=== PATIENT | male | born 1980 | race Caucasian/White ===

== ENCOUNTER → 2018-07-18 11:33 | Outpatient (CLI) | payer MEDICARE, SELFPAY ==
[2018-07-18 14:17] LABS: Anion Gap 10 (5-15); BUN 7 mg/dL (7-18); BUN/Creat Ratio 6.7 RATIO (10-20); Calcium,Total 8.4 mg/dL (8.5-10.1); Chloride 109 mmol/L (98-107); Creatinine, Serum 1.04 mg/dL (0.70-1.30); EST Glomerular Filtration Rate 86 mL/min (>60); Est Glom Filt Rate - Afr Amer 104 mL/min (>60); Glucose 122 mg/dL (74-106); Potassium 3.7 mmol/L (3.5-5.1); Sodium Level 141 mmol/L (136-145)
== END ==
PROVIDERS: Family Provider Family Medicine; PCP Family Medicine; Visit Provider Family Medicine
DX: I10 Essential (primary) hypertension (principal)
CPT/HCPCS: 36415; 80048

== ENCOUNTER → 2019-08-01 14:04 | Outpatient (CLI) | payer MEDICARE, SELFPAY ==
--- NOTE | 2019-08-01 14:10 | RAD_ITS ---
STUDY: X-RAY - PELVIS AND RIGHT HIP REASON FOR EXAM: Male, 38 years old. TECHNIQUE: 3 views of the pelvis and hip. COMPARISON: None. FINDINGS: There is a non-specific bowel gas pattern. Normal visualized soft tissue structures. Normal bilateral iliac wings, sacroiliac joints and visualized sacrum. Normal bilateral superior and inferior pubic rami. Normal pubic symphysis. Normal bilateral ischial tuberosities. Normal visualized femoral head. Normal acetabulum. There is mild osteoarthritis involving both hip joints particularly of the medial aspect slightly more on the right side. RAD/HIP, UNI W/ Pelvis 2-3 Views IMPRESSION: Mild osteoarthritis medial aspect of the hip joints bilaterally more on the right Electronically Signed: Shwetha Sierra, at 16:28 EST Tel , Service support ,
== END ==
PROVIDERS: Family Provider Family Medicine; PCP Family Medicine; Referring Provider Family Medicine; Visit Provider Family Medicine
DX: M25.551 Pain in right hip (principal)
CPT/HCPCS: 73502

== ENCOUNTER 2019-09-07 10:00 | Outpatient (RCR) | payer MEDICARE, SELFPAY ==
--- NOTE | 2019-08-17 09:49 | HP.PTEVAL ---
Patient's Visit Information SINAI PURI is a 38 year old M referred to Physical Therapy by Susan Alfaro MD with a diagnosis of R hip tendonitis. Date of Evaluation: 08/17/19 Physical Therapist: Sonny Virgen, SHIRAT, OCS, CSCS - Visit Plan Frequency: 1-2x /Week Duration: 4-6 Weeks Plan: weekly to 2x/week to work on hip strengthing and strengthening, given ITB and Piriformis stretch today and activitiy modification. Next start hip stab strenghening via HEP - Subjective Findings: R hip hurting for a year or so. Insidiously. Twisting or turning causes him to feel it pop and shoot pain down to knee laterally. No treatment lately. Xray showed OA but not terrible. Worse when walking alot and painful about 50% of the day. Sitting is pretty comfortable. Steps do not bother him. Works at [employer] on feet and moving around. Worse after work. Sleep was keeping him up a couple weeks ago. Sleeps on R side or back. Bowling is hobby and it sometimes hurts to bowl. Sometimes can barely walk after bowling. - Pain R hip Pain Intensity (Out of 10): 0 Pain Intensity Range: 0, 3 - Objective Walks and steps today without pain or antalgia and no limping. Tranfers easily adn painfree. ITB and piriformis are max tight B, HS min tight, quad min tight. No tenderness today at trochanter or gluteal/piriformis area but slight uncomfy to contract Rext rotators adn IR. 4- strength in rotators, abd, extensors of B hips. 4/5 hip strength flexion and adduction, 5/5 knees. Full AROM at hips and knees and ankles. 2/3 reflexes patella and achilles. Sensation WNL to gross light touch in LE. + ARLEY, - FADDIR, - hip scour. - Goals Goal 1:: No pain with hip contractions R. Goal Time Frame: 4-6 Weeks Goal 2:: Pt feel 95% better adn work without pain. Goal Time Frame: 4-6 Weeks Goal 3:: I appropriate HEP to minimize future problems. Goal Time Frame: 4-6 Weeks - Rehabilitation Potential Physical Therapy Diagnosis: R hip pain tendonitis/pirifrmis/ITB syndrome Rehabilitation Potential: Good - Anticipated Interventions Patient/Client Instruction: Educate patient on: Condition, Plan of Care For the Purpose of:: To decrease pain, To improve muscle performance and motor function, To improve ability of physical actions for home/community/work/leisure Therapeutic Exercise to Include: Strength training, Flexibilty training, Passive ROM, Active ROM For the Purpose of:: To decrease pain, To improve muscle performance and motor function, To improve ability of physical actions for home/community/work/leisure, To improve gait and locomotor functions Thank you for the opportunity to evaluate your patient. For Medicare and Medicare HMO plans, please review the plan of care and approve it. It will need to be FAXED BACK to us at [phone] for Medicare purposes. For Medicare only, by signing this I certify the plan of care. Please let me know if there are questions or concerns regarding this plan of care. Physician Signature: Date:
--- NOTE | 2019-09-07 10:15 | HP.PTDCSUM ---
HP - PT D/C Summary It has been my pleasure to treat SINAI PURI under orders from Susan Alfaro MD, for the diagnosis of R hip tendonitis for a total of 3 visit(s). Discharge Date: 09/07/19 Please see the following information for a summary of their discharge status. - Subjective Subjective: No more pain down leg in the last week. None in a week. Stretching daily and strengthening daily. To Dr. Joaquin on 09/22. Bowled 6 games [employer] without problem. - Pain R hip Pain Intensity (Out of 10): 0 - Overall Improvement % Improvement: 95 - Objective Objective/Function: No tenderness in hips lateerally today, steps two at a time without pain. knee to table easily in L sidelying. walks without antalgia. [id number] MUCH BETTER AND HAS TOOLS TO COTNINUE ON HIS OWN. - Goals Goal 1:: No pain with hip contractions R. Goal Progress: Goal Met Goal 2:: Pt feel 95% better adn work without pain. Goal Progress: Goal Met Goal 3:: I appropriate HEP to minimize future problems. Goal Progress: Goal Met - Plan Plan: D/C - D/C Information Discharge Comments: PT DOING WELL INCLUDING BOWLING WITHOUT PAIN. WILL CONTINUE VIA HEP AND F/U WITH DOCTOR IN TWO WEEKS. If there are questions or concerns regarding this patient's physical therapy, please feel free to call me at [phone]. Thank you for the referral of this patient. Sincerely, Sonny Virgen, DPT, OCS, CSCS
== END 2019-09-07 19:00 | disposition home or self-care (01) ==
LOC: PT 10:00
PROVIDERS: Family Provider Family Medicine; PCP Family Medicine; Referring Provider Family Medicine; Visit Provider Family Medicine
DX: M76.9 Unspecified enthesopathy, lower limb, excluding foot (principal)
CPT/HCPCS: 97110; 97162; 97530

== ENCOUNTER → 2019-10-29 | Outpatient (CLI) | payer MEDICARE, SELFPAY ==
[2019-10-11 11:12] VITALS: BMI 26.6
[2019-10-29 09:36] LABS: AST(SGOT) 16 U/L (15-37); Alanine Aminotransfer ALT/SGPT 29 U/L (16-61); Albumin, Serum 3.6 g/dL (3.2-5.0); Alkaline Phosphatase 82 U/L (45-117); Cholesterol 113 mg/dL (200); Globulin 3.8 g/dL (2.2-4.2); High Density Lipoprotein 27 mg/dL; Protein, Total 7.4 g/dL (6.4-8.2); Triglycerides 132 mg/dL; Very Low Density Lipoprotein 26 mg/dL (5-40)
== END | disposition home or self-care (01) ==
PROVIDERS: PCP Family Medicine; Referring Provider Internal Medicine Cardiovascular Disease; Visit Provider Internal Medicine Cardiovascular Disease
DX: E78.00 Pure hypercholesterolemia, unspecified (principal); I10 Essential (primary) hypertension; Z82.49 Family history of ischemic heart disease and other diseases of the circulatory system
CPT/HCPCS: 36415; 80061; 80076

== ENCOUNTER → 2019-11-02 | Outpatient (CLI) | payer MEDICARE, SELFPAY ==
[2019-10-11 11:12] VITALS: BMI 26.6
--- NOTE | 2019-11-02 15:06 | STRESSREP ---
Stress Test Report Date: ? Procedure: Exercise tolerance test Indications: Hypertension: Family history of CAD Consent: Per the patient Procedure: The patient exercised on a Chele protocol for 10 minutes completing Stage III and 1 minute of Stage IV achieving a peak heart rate of 181 bpm (99 % predicted maximal heart rate) with a peak blood pressure 200/84 mmHg and a peak MET capacity of approximately 11 MET's. The baseline ECG demonstrated sinus bradycardia. The peak exercise ECG demonstrated somatic/motion artifact with no obvious ECG changes. There were no cardiac dysrhythmias pretest, during exercise, or recovery. The functional capacity was considered good. The patient had no complaint of chest discomfort during exercise or recovery. The examination was discontinued secondary to dyspnea. Impression: 1. Technically adequate (percent predicted maximal heart rate greater than 85%) exercise tolerance test 2. Peak exercise ECG with somatic/motion artifact with no obvious ECG changes 3. There were no cardiac dysrhythmias during exercise or recovery This note was generated with [employer] software. It may contain incorrect words, spelling, and punctuation that were not noted in checking the note before signing.
== END | disposition home or self-care (01) ==
PROVIDERS: PCP Family Medicine; Referring Provider Internal Medicine Cardiovascular Disease; Visit Provider Internal Medicine Cardiovascular Disease
DX: I10 Essential (primary) hypertension (principal); Z82.49 Family history of ischemic heart disease and other diseases of the circulatory system
CPT/HCPCS: 93017

== ENCOUNTER → 2020-09-23 09:37 | Outpatient (CLI) | payer MEDICARE, SELFPAY ==
[2019-10-11 11:12] VITALS: BMI 26.6
[2020-09-23 12:27] LABS: Anion Gap 5 (5-15); BUN 15 mg/dL (7-18); BUN/Creat Ratio 14.7 RATIO (10-20); Calcium,Total 8.7 mg/dL (8.5-10.1); Chloride 111 mmol/L (98-107); Creatinine, Serum 1.02 mg/dL (0.70-1.30); EST Glomerular Filtration Rate 86 mL/min (>60); Est Glom Filt Rate - Afr Amer 105 mL/min (>60); Glucose 86 mg/dL (74-106); Potassium 3.8 mmol/L (3.5-5.1); Sodium Level 139 mmol/L (136-145)
== END ==
LOC: MFPLAB 09:38
PROVIDERS: PCP Family Medicine; Referring Provider Family Medicine; Visit Provider Family Medicine
DX: I10 Essential (primary) hypertension (principal)
CPT/HCPCS: 36415; 80048

== ENCOUNTER 2021-10-27 09:10 | Outpatient (CLI) | payer MEDICARE, SELFPAY ==
--- NOTE | 2021-10-27 09:18 | RAD_ITS ---
STUDY: X-RAY - LUMBAR SPINE REASON FOR EXAM: Male, 41 years old. LUMBAGO WITH SCIATICA TECHNIQUE: 5 view(s) of the lumbar spine were obtained including oblique views. COMPARISON: None FINDINGS: There is straightening of the normal lumbar lordosis. There is a mild dextroscoliosis of the lumbar spine. There is a normal alignment of the vertebrae. There is multilevel endplate spondylosis of the lumbar vertebrae. There is multi-level degenerative disc disease with multi-level disc space narrowing. The soft tissue structures are unremarkable. RAD/L/S Spine Min 4 Views IMPRESSION: Degenerative changes of the spine, as detailed above. Loss of the normal lumbar lordosis. Minimal dextroscoliosis. Electronically Signed: Kenny Nash MD at 15:36 EST ,
== END 2021-10-27 23:59 | disposition home or self-care (01) ==
LOC: MTRAD 09:15
PROVIDERS: PCP Family Medicine; Referring Provider Family Medicine; Visit Provider Family Medicine
DX: M54.41 Lumbago with sciatica, right side (principal)
CPT/HCPCS: 72110

== ENCOUNTER → 2021-12-24 | Outpatient (CLI) | payer MEDICARE, SELFPAY ==
--- NOTE | 2021-12-24 10:32 | MRI_ITS ---
STUDY: MRI LUMBAR SPINE WITHOUT CONTRAST REASON FOR EXAM: Male, 41 years old. LUMBAGO, SCIATICA, right buttock pain, right leg pain TECHNIQUE: Standardized fat and water weighted pulse sequences were obtained in the sagittal and axial planes. COMPARISON: Lumbar spine x-ray obtained on 10/27/2021. FINDINGS: Straightening of alignment of the columns of the lumbar spine is visualized, no evidence of spondylolisthesis is seen. Multilevel degenerative endplate changes visualized most prominent involving the superior endplate of the L2 vertebral body, no evidence of compression deformity of the lumbar vertebral bodies. Heterogeneous signal intensity visualized within the marrow of the lumbar vertebral bodies but no evidence of T2 prolongation is visualized suggest fracture, edema or infiltrative process, findings suggestive of yellow marrow. Decreased intervertebral disc height and desiccation visualized in the L4-5 L5-S1 intervertebral discs. The cord terminates at the level of the T12-L1 intervertebral disc space, no abnormal signal intensity visualized within the terminal cord, terminal neurofibers demonstrate no evidence of thickening or clumping to suggest arachnoiditis. The visualized abdominal soft tissues are unremarkable. L1-2: Degenerative disc changes and hypertrophic changes in the facet joints and ligamentum flavum, no significant narrowing of the spinal canal and no significant narrowing of bilateral neural foramina visualized at this level. L2-3: Degenerative disc changes and hypertrophic changes in the facet joints and ligamentum flavum visualized, no significant narrowing of the spinal canal or bilateral neuroforamina is visualized at this level. L3-4: Degenerative disc changes and hypertrophic changes in the facet joints and ligamentum flavum visualized, no significant narrowing of the spinal canal or bilateral neuroforamina is visualized at this level. L4-5: Circumferential disc bulge with a right paracentral component, hypertrophic changes in the facet joints is visualized at this level, mild narrowing of the spinal canal is seen, moderate narrowing of the right neural foramina and mild narrowing of the left neuroforamina is seen at this level. L5-S1: Subtle right paracentral disc bulge visualized with hypertrophic changes in the facet joints more prominent in the right facet, mild narrowing of the right lateral space is seen, moderate narrowing of the right neural foramina and no significant narrowing of the left neuroforamina is visualized at this level. Normal visualized sacral ala. Normal visualized paraspinous soft tissue structures. MRI/Spine Lumbar (Routine) IMPRESSION: Degenerative changes of the lumbar spine, degenerative intervertebral disc is visualized most prominent at L4-5 and L5-S1 where there are moderate narrowing of the right neural foramina visualized. Electronically Signed: Charlie Best MD at 11:55 EDT ,
== END | disposition home or self-care (01) ==
LOC: MRI 10:18
PROVIDERS: PCP Family Medicine; Referring Provider Family Medicine; Visit Provider Family Medicine
DX: M54.41 Lumbago with sciatica, right side (principal)
CPT/HCPCS: 72148

== ENCOUNTER → 2023-04-06 | Outpatient (CLI) | payer MEDICARE, SELFPAY ==
[2023-04-06 10:48] LABS: Anion Gap 6 (5-15); BUN 10 mg/dL (7-18); BUN/Creat Ratio 10.4 RATIO (10-20); Calcium,Total 8.5 mg/dL (8.5-10.1); Chloride 111 mmol/L (98-107); Cholesterol 131 mg/dL (200); Creatinine, Serum 0.97 mg/dL (0.70-1.30); EST Glomerular Filtration Rate 91 mL/min (>60); Est Glom Filt Rate - Afr Amer 110 mL/min (>60); Glucose 67 mg/dL (74-106); High Density Lipoprotein 29 mg/dL; Potassium 3.6 mmol/L (3.5-5.1); Sodium Level 143 mmol/L (136-145); Triglycerides 339 mg/dL; Very Low Density Lipoprotein 68 mg/dL (5-40)
== END | disposition home or self-care (01) ==
LOC: MFPLAB 09:34
PROVIDERS: PCP Family Medicine; Visit Provider Family Medicine
DX: Z00.00 Encounter for general adult medical examination without abnormal findings (principal); Z13.1 Encounter for screening for diabetes mellitus; Z13.220 Encounter for screening for lipoid disorders
CPT/HCPCS: 36415; 80048; 80061